=== PATIENT | female | born 1965 | race Caucasian/White ===

== ENCOUNTER 2016-11-26 19:37 | Emergency (ER) | payer OTHER ==
--- NOTE | 2016-11-26 19:54 | UC ---
Neck Pain HPI - HPI Summary HPI Summary: 51 year old female presents with complains of severe neck pain with radiation to both shoulders. She has tried NSAIDS, muscle relaxants, and PT. SPOKE TO G[employer] RATLIFF. Rule out meningitis/diskitis/disc herniation - History of Current Complaint Stated Complaint: NECK/SHOULDER PAIN X 3WEEKS Time Seen by Provider: 11/26/16 19:54 Hx Last Menstrual Period: APPROX 4 WKS AGO - Allergies/Home Medications Allergies/Adverse Reactions: Allergies Allergy/AdvReac Type Severity Reaction Status Date / Time Cephalexin Allergy Intermediate Itching Verified 11/26/16 19:49 Home Medications: Home Medications Cyclobenzaprine TAB* [Flexeril 10 MG TAB*] 10 mg PO TID PRN 11/26/16 [History Confirmed 11/26/16] Varenicline (NF) [Chantix 1 MG TAB (NF)] 1 mg PO BID 11/26/16 [History Confirmed 11/26/16] PMH/Surg Hx/FS Hx/Imm Hx - Surgical History Surgical History: Yes Surgery Procedure, Year, and Place: 3 C-SECTS. VEIN REMOVED LLE - Social History Alcohol Use: None Substance Use Type: None Smoking Status (MU): Heavy Every Day Tobacco Smoker Type: Cigarettes Amount Used/How Often: 1 PPD Length of Time of Smoking/Using Tobacco: 30 YRS Have You Smoked in the Last Year: Yes Review Of Systems Constitutional: Positive: Negative Skin: Positive: Negative Eyes: Positive: Negative Musculoskeletal: Positive: Arthralgia, Myalgia, Other: - NECK PAIN All Other Systems Reviewed And Are Negative: Yes Physical Exam Triage Information Reviewed: Yes Eye Exam: Normal ENT Exam: Normal Dental Exam: Normal Neck exam: Normal Neck: Positive: 1 Respiratory Exam: Normal Cardiovascular Exam: Normal Abdominal Exam: Normal Musculoskeletal: Positive: Strength Limited @, ROM Limited @ Neurological Exam: Normal Psychological Exam: Normal Skin Exam: Normal Neck Pain Course/Dx - Differential Dx/Diagnosis Provider Diagnoses: NECK PAIN Discharge - Discharge Plan Condition: Guarded Disposition: AGAINST MEDICAL ADVICE Referrals: No Primary Care Phys,NOPCP [Primary Care Provider] -
[2016-11-26 20:19] VITALS: BP 153/80
== END 2016-11-26 20:20 | disposition left against medical advice (07) ==
LOC: UCCORT 19:37
DX: M54.2 Cervicalgia (principal); Z72.0 Tobacco use
CPT/HCPCS: 93005; 99212; G0463